=== PATIENT | male | born 1955 | race Caucasian/White ===

== ENCOUNTER 2022-06-13 00:02 | Inpatient (IN) | payer MEDICARE, OTHER ==
[~2022-06-13] VITALS: Ht 180.3 cm; Wt 88.0 kg
[2022-06-13] MEDS ORDERED: DULO60CA45 PO (00:21)
[2022-06-13] MEDS ORDERED: TRAZ-257 PO (00:21)
[2022-06-13] MEDS ORDERED: TAMS-3 PO (00:21)
[2022-06-13] MEDS ORDERED: BUPR100T6 PO (00:21)
[2022-06-13 02:58] LABS: HEMATOCRIT 42.9 % (36.7-47.1); MEAN CORPUSCULAR HEMOGLOBIN 29.2 uug (23.8-33.4); MEAN CORPUSCULAR VOLUME 87.6 fL (73.0-96.2); PLATELET COUNT (AUTO) 233 K/uL (152-348)
[2022-06-13 02:59] LABS: CARBON DIOXIDE 30 mmol/L (21-32); CHLORIDE 104 mmol/L (98-107); CREATININE 1.1 mg/dL (0.6-1.3); GLUCOSE 98 mg/dL (74-106); POTASSIUM 4.4 mmol/L (3.5-5.1); UREA NITROGEN, BLOOD 23 mg/dL (7-18)
[2022-06-13 03:04] LABS: ALANINE AMINOTRANSFERASE 31 U/L (16-63); ALKALINE PHOSPHATASE 82 U/L (50-136); ASPARTATE AMINOTRANSFERASE 10 U/L (15-37); BILIRUBIN,DIRECT 0.1 mg/dL (0.0-0.2); BILIRUBIN,TOTAL 0.4 mg/dL (0.2-1.0)
[2022-06-13 03:05] LABS: ACETAMINOPHEN < 2.0 ug/mL (10-30)
[2022-06-13 03:07] LABS: ETHANOL < 3 MG/DL (0-0)
[2022-06-13 03:09] LABS: *AMPHETAMINE, URINE NEGATIVE (NEGATIVE); *CANNABINOID, URINE NEGATIVE (NEGATIVE); *COCCAINE, URINE NEGATIVE (NEGATIVE); *OPIATE, URINE NEGATIVE (NEGATIVE); *PHENCYCLIDINE SCREEN,URINE NEGATIVE (NEGATIVE)
[2022-06-13 03:12] LABS: THYROID STIMULATING HORMONE 3.217 mIU/mL (0.358-3.740)
--- NOTE | 2022-06-13 04:17 | NUR ---
patient is a/ox4, NAD noted. Patient is able to walk to the restroom with steady gait
--- NOTE | 2022-06-13 04:42 | NUR ---
report given to Renetta HYATT
--- NOTE | 2022-06-13 06:24 | NUR ---
Pt. admitted to MHU room 139B , under care of Dr. Walton Belongs List completed
[2022-06-13] MEDS ORDERED: MAG HYDROX/AL HYDROX/SIMETH 30 ML LIQUID UDC PO PRN (06:30)
[2022-06-13] MEDS ORDERED: MAGNESIUM HYDROXIDE 30 ML LIQUID UDC PO PRN (06:30)
[2022-06-13] MEDS ORDERED: ACETAMINOPHEN 325 MG TABLET PO PRN (06:30)
[2022-06-13 06:54] VITALS: BP 139/74
--- NOTE | 2022-06-13 07:16 | NUR ---
GPS ADMISSION NOTE: Patient is a 66 year old male , brought to the hospital on a 5150 from [place], for DTS. Per hold, the patient verbalized wanting "to " because " I am in a lot of pain ". This patient has a history of prostate surgery and per the patient, this has caused him to be in pain in the testicular region. Upon face to face evaluation, the patient is alert and oriented x4, but anxious. This specifications writer was able to engage in a meaningful conversation with the patient who expressed a urgent need to get his medical problems addressed. Patient denied active SI but does feel his situation seems hopeless at times. The patient made a verbal contract for safety at that time with this specifications writer. The unit rules and plan of care were discussed. A patients Rights Handbook and the Advisement were provided. VS are stable . Safety Stratiges in place. Monitoring patients depression and pain at this time.
[2022-06-13 07:30] VITALS: BP 108/70
[2022-06-13] MEDS: TAMSULOSIN HCL 0.4 MG CAP.SR.24H PO SCH ×2 (09:45→21:00)
--- NOTE | 2022-06-13 10:36 | NUR ---
GPS: OFFERED FLOMAX TO PT BUT REFUSED, HE STATED "IT DOESN'T WORK WELL WITH ME AND IT GIVES ME AN ACCIDENT". EXPLAINED THE RISK AND BENEFITS BUT STILL REFUSED. WILL NOTIFY MD FOR ANY SUBSTITUTE MED.
[2022-06-13] MEDS: FLUOXETINE HCL 20 MG CAPSULE PO SCH (13:30)
--- NOTE | 2022-06-13 14:03 | NUR ---
Patient is cooperative, calm, appropriate, quiet. Patient denies SI. Pt. states "I said that I wanted because I was having a lot of pain". Self care. Pt. is encourage to vent feelings and emotions. Fall and safety precautions implemented.
[2022-06-13 16:00] VITALS: BP 111/73
--- NOTE | 2022-06-13 16:13 | NUR ---
MAURILIO Initial Discharge Note: Patient currently resides alone in his house located at [address] [place] [address] ([phone]). Patient states that he will discharge home. MAURILIO will contact the patient's daughter, Candice ([phone]). MAURILIO will continue to work with patient, family, and MD to ensure a safe and proper discharge plan.
--- NOTE | 2022-06-13 16:21 | NUR ---
Firearms Report: Casino Manager completed and submitted a DOJ firearms report for 5150 danger to self certifications. A copy of report has been placed in patient chart.
[2022-06-13] MEDS: ATORVASTATIN 20 MG TABLET PO SCH (20:14)
[2022-06-13] MEDS: MELATONIN 3 MG TABLET PO SCH (20:14)
[2022-06-13 20:26] VITALS: BP 119/78
--- NOTE | 2022-06-13 20:45 | NUR ---
RECEIVED PATIENT IN HIS ROOM SITTING IN HIS BED. HE IS NOTED A/O X 4 ABLE TO VERBALIZED FEELINGS. HE APPEARS DEPRESSED HE IS WITHDRAWN BUT HE DENIED SI/HI//AH HE IS ABLE TO VERBALLY CFS. HE STATED, "I AM HERE BECAUSE I TOLD THE NURSE FORM THE OTHER HOSPITAL THAT I WANTED TO ". "I DON'T WANT TO . I JUST SAID THAT BECAUSE I AM HAVING SOME PROBLEMS WITH MY URINE AND MY PROSTATE". PATIENT IS COMPLIANT WITH HIS MEDICATION REGIMENT. HE IS NOTED GOAL ORIENTED. HE IS REASSURED FOR HIS SAFETY. SAFETY AND FALL PRECAUTIONS ARE IN PLACE. HE WAS GIVEN PO FLUIDS AND SNACKS. WILL CONTINUE TO MONITOR.
[2022-06-14] MEDS: TEMAZEPAM 7.5 MG CAPSULE PO PRN ×2 (00:06→22:40)
[2022-06-14 07:30] VITALS: BP 117/75
[2022-06-14] MEDS: TAMSULOSIN HCL 0.4 MG CAP.SR.24H PO SCH (09:28)
[2022-06-14] MEDS: LORAZEPAM 0.5 MG TABLET PO PRN ×2 (09:34→14:13)
[2022-06-14] MEDS: FLUOXETINE HCL 20 MG CAPSULE PO SCH (12:50)
--- NOTE | 2022-06-14 14:30 | NUR ---
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 Complained of scrotal discomfort, from his previous TURP. medicated with tylenol 650 mg po, verbalized, adequate relief.
[2022-06-14 16:00] VITALS: BP 97/60
[2022-06-14 19:46] VITALS: BP 115/72
--- NOTE | 2022-06-14 20:30 | NUR ---
RECEIVED PATIENT IN THE DAYROOM. HE IS NOTED A/O X 4. HE IS CALM AND PLEASANT UPON APPROACHED/ HE IS ABLE TO VERBALIZED HIS FEELING. PATIENT DENIED SI AND HE IS ABLE TO VERBALLY CFS. HE STATED, "I DON'T WANT TO AND DON'T WANT TO HARM MYSELF I AM JUST TIRED OF HAVING PAIN. I HAVE AN APPOINTMENT WITH MY DOCTOR ON SATURDAY VIA PHONE CALL TO DISCUSS MY OPTIONS". PT IS GOAL ORIENTED, HE IS REASSURED FOR HIS SAFETY. SAFETY AND FALL PRECAUTIONS ARE IN PLACE. HIS V/S ARE STABLE. HE WAS GIVEN PO FLUIDS AND SNACKS. WILL CONTINUE TO MONITOR,
[2022-06-14] MEDS: MELATONIN 3 MG TABLET PO SCH (20:31)
[2022-06-14] MEDS: ATORVASTATIN 20 MG TABLET PO SCH (20:32)
[2022-06-15] MEDS: LORAZEPAM 0.5 MG TABLET PO PRN ×2 (04:06→09:01)
--- NOTE | 2022-06-15 06:58 | NUR ---
patient slept for approx 4 hrs through the night. he was given Temazepam 7.5mg PO PRN for insomnia. will continue to monitor.
[2022-06-15 07:30] VITALS: BP 114/71
--- NOTE | 2022-06-15 10:00 | NUR ---
GPS;Patient had 5250 probable cause hearing today and it was upheld for danger to self.
--- NOTE | 2022-06-15 11:44 | NUR ---
CLINICAL SW NOTE: MAURILIO contacted pt's urologist's, Dr. Lang's office, and spoke with Angela ([phone]). MAURILIO informed Angela to contact the [facility] nursing station ([phone]) for pt's phone appointment today at 4:20PM. Angela confirmed she notified the office to contact the nursing station instead of the pt's phone. Pt is aware and agreeable. OPERATIONS FORESTER, Miky made aware. MAURILIO informed nursing station, Mitzy.
[2022-06-15] MEDS: FLUOXETINE HCL 20 MG CAPSULE PO SCH (12:10)
[2022-06-15] MEDS: TAMSULOSIN HCL 0.4 MG CAP.SR.24H PO SCH (12:11)
[2022-06-15] MEDS ORDERED: FLUOXETINE HCL 20 MG CAPSULE PO ONE (13:15)
[2022-06-15] MEDS: busPIRone 5 MG TABLET PO SCH ×2 (13:16→16:43)
[2022-06-15 15:10] VITALS: BP 104/69
--- NOTE | 2022-06-15 17:05 | NUR ---
Gps/Earth Moving Machine Operator- No calls received from patient's Urologist , waiting from their office (appointment was made for 1620 this pm.) Current medication list printed in preparation to the appointment, but no calls noted. Patient was informed.
[2022-06-15] MEDS: IBUPROFEN 600 MG TABLET PO PRN (17:29)
[2022-06-15] MEDS: TRAZODONE 100 MG TABLET PO SCH (20:24)
[2022-06-15] MEDS: ATORVASTATIN 20 MG TABLET PO SCH (20:24)
[2022-06-15] MEDS ORDERED: TAMSULOSIN HCL 0.4 MG CAP.SR.24H PO SCH (21:00)
[2022-06-15 22:02] VITALS: BP 114/65
[2022-06-15] MEDS: TEMAZEPAM 7.5 MG CAPSULE PO PRN (22:03)
[2022-06-16 07:31] VITALS: BP 113/70
[2022-06-16] MEDS: busPIRone 5 MG TABLET PO SCH ×3 (08:54→16:09)
[2022-06-16] MEDS: TAMSULOSIN HCL 0.4 MG CAP.SR.24H PO SCH (08:54)
[2022-06-16] MEDS: FLUOXETINE HCL 20 MG CAPSULE PO SCH (12:03)
[2022-06-16 16:21] VITALS: BP 106/67
[2022-06-16 20:09] VITALS: BP 104/67
[2022-06-16] MEDS: TRAZODONE 100 MG TABLET PO SCH (20:09)
[2022-06-16] MEDS: ATORVASTATIN 20 MG TABLET PO SCH (20:09)
[2022-06-16] MEDS: LORAZEPAM 0.5 MG TABLET PO PRN (20:09)
[2022-06-16] MEDS: TEMAZEPAM 15 MG CAPSULE PO PRN (22:07)
--- NOTE | 2022-06-17 01:47 | NUR ---
Received patient at the start of the shift, pacing in the hallway. Anxious, but adamantly denied any SI. The patient is depressed however, and ruminates on his medical problems. Also he verbalizes multiple complaints ,is needy and is difficult to appease despite best efforts on behalf of this typewriter assembly and parts inspector. The patient requested medication for anxiety and was given a sleeping pill per request because " that Trazodone doesn't do anything at all ." Safety Stratiges are in place. This typewriter assembly and parts inspector offered the patient a urinal d/t him getting up frequently to void but the patient declined. Continuing to monitor for SI , depression and pain. The patient does not engage in meaningful conversation , and has poor insight.
[2022-06-17 07:52] VITALS: BP 110/71
[2022-06-17] MEDS: TAMSULOSIN HCL 0.4 MG CAP.SR.24H PO SCH (08:38)
[2022-06-17] MEDS: busPIRone 5 MG TABLET PO SCH ×3 (08:38→16:33)
[2022-06-17] MEDS: LORAZEPAM 0.5 MG TABLET PO PRN (12:12)
[2022-06-17] MEDS: FLUOXETINE HCL 20 MG CAPSULE PO SCH (12:12)
[2022-06-17 17:44] VITALS: BP 94/52
[2022-06-17] MEDS: IBUPROFEN 600 MG TABLET PO PRN (17:50)
--- NOTE | 2022-06-17 20:05 | NUR ---
RECEIVED PATIENT IN THE DAY ROOM. HE IS NOTED A/O X 3 ABLE TO VERBALIZED HIS FEELING. HE IS CALM AND PLEASANT UPON APPROACHED. HE DENIED SI/HI/VH/AH. HE IS ABLE TO VERBALLY CFS. HE STATED, "I DON'T WANT TO OR HARM MYSELF, I WANT TO GET BETTER, I DON'T WANT TO BE IN PAIN. I WANT TO SEE MY DOCTOR AND START MY TREATMENT. I WAS SUPPOSED TO SEE HIM ON SATURDAY BUT HE DIDN'T CALL". PATIENT IS NOTED GOAL ORIENTED. HE IS REASSURED FOR HIS SAFETY. SAFETY AND FALL PRECAUTIONS ARE IN PLACE, WILL CONTINUE TO MONITOR.
[2022-06-17 20:19] VITALS: BP 105/69
[2022-06-17] MEDS: TRAZODONE 100 MG TABLET PO SCH (20:53)
[2022-06-17] MEDS: ATORVASTATIN 20 MG TABLET PO SCH (20:53)
[2022-06-17] MEDS: TEMAZEPAM 15 MG CAPSULE PO PRN (21:52)
[2022-06-18 07:30] VITALS: BP 118/73
[2022-06-18] MEDS: TAMSULOSIN HCL 0.4 MG CAP.SR.24H PO SCH (08:24)
[2022-06-18] MEDS: busPIRone 5 MG TABLET PO SCH ×3 (08:24→16:24)
[2022-06-18] MEDS: LORAZEPAM 0.5 MG TABLET PO PRN ×2 (09:57→20:59)
[2022-06-18] MEDS: FLUOXETINE HCL 20 MG CAPSULE PO SCH (12:28)
--- NOTE | 2022-06-18 14:11 | NUR ---
Received patient continued medications compliance noted. making his needs known, attends and participate in his group tx. Able to verbalized feelings, feels hopeless and helpless but denies any suicidal ideation .c/o anxiety at time Ativan 1 mg po given as ordered.
[2022-06-18 15:05] VITALS: BP 105/62
[2022-06-18] MEDS: TRAZODONE 100 MG TABLET PO SCH (20:30)
[2022-06-18] MEDS: ATORVASTATIN 20 MG TABLET PO SCH (20:30)
--- NOTE | 2022-06-19 04:36 | NUR ---
GPS NOTES: Patient continues to be med compliant, A&0x3, able to make needs known. He is requesting for Restoril but informed patient that it was d/c and can talk to the in the Am to continue the order. He slept most of the shift, no issue noted. Frequent monitoring observed.
[2022-06-19 07:30] VITALS: BP 112/72
[2022-06-19] MEDS: TAMSULOSIN HCL 0.4 MG CAP.SR.24H PO SCH (08:39)
[2022-06-19] MEDS: busPIRone 5 MG TABLET PO SCH ×3 (08:39→16:49)
[2022-06-19] MEDS: FLUOXETINE HCL 20 MG CAPSULE PO SCH (12:35)
--- NOTE | 2022-06-19 15:09 | NUR ---
Patient is cooperative with care and compliant with medications, calm, sociable, pleasant. Pt. is A/O X 3 -4 to person, place, environment. Self care. Patient is encourage to verbalize concerns. Fall and safe precautions implemented.
[2022-06-19 15:30] VITALS: BP 103/47
[2022-06-19 19:53] VITALS: BP 106/77
[2022-06-19] MEDS: ATORVASTATIN 20 MG TABLET PO SCH (20:49)
[2022-06-19] MEDS: TRAZODONE 50 MG TABLET PO SCH (20:50)
[2022-06-20 07:30] VITALS: BP 116/75
[2022-06-20] MEDS: TAMSULOSIN HCL 0.4 MG CAP.SR.24H PO SCH (08:40)
[2022-06-20] MEDS: busPIRone 5 MG TABLET PO SCH ×3 (08:40→16:48)
--- NOTE | 2022-06-20 11:58 | NUR ---
Social Work Coordination of Care: Conveyor Belt Repairer faxed patient's referral packet including: History and Physical, Consultation, Progress Notes, Medication List and Labs to the following facilities for review and possible assisted placement: [facility] located at [address] [place] [address] ([phone]). MAURILIO spoke with admissions equity traderElena.
[2022-06-20] MEDS: FLUOXETINE HCL 20 MG CAPSULE PO SCH (13:29)
--- NOTE | 2022-06-20 13:59 | NUR ---
MAURILIO Family Contact: MAURILIO contacted pt's sister, Candice ([phone]) and discussed pt's discharge for this Saturday. Candice confirmed that she will not be able to provide transportation or care due to her work and children. Candice stated that the pt does not have an available family member at this time to help with continuation of care or transportation. Candice agreed to the psychiatrist's recommendation prior to discharge for the discharge plan. MAURILIO stated she will confirm the discharge plan once available.
--- NOTE | 2022-06-20 14:35 | NUR ---
SW Discharge Update: Elena from [facility] located at [address] [place] [id number] ([phone]) confirmed pt's acceptance to their facility upon discharge.
--- NOTE | 2022-06-20 14:59 | NUR ---
Patient is sociable, pleasant, calm, cooperative, appropriate, compliant with medications. Self care. Pt. is encourage to vent feelings and emotions. Fall and safety precautions implemented.
[2022-06-20 16:00] VITALS: BP 107/63
[2022-06-20 20:00] VITALS: BP 110/62
[2022-06-20] MEDS: TRAZODONE 50 MG TABLET PO SCH (20:39)
[2022-06-20] MEDS: ATORVASTATIN 20 MG TABLET PO SCH (20:39)
[2022-06-21 07:30] VITALS: BP 115/74
[2022-06-21] MEDS: busPIRone 5 MG TABLET PO SCH ×3 (08:32→17:30)
[2022-06-21] MEDS: TAMSULOSIN HCL 0.4 MG CAP.SR.24H PO SCH (08:32)
[2022-06-21] MEDS: FLUOXETINE HCL 20 MG CAPSULE PO SCH (12:47)
[2022-06-21 15:52] VITALS: BP 97/63
--- NOTE | 2022-06-21 16:24 | NUR ---
MAURILIO Family Contact: SW contacted pt's daughter, Candice ([phone]) and discussed pt's discharge plan. Candice is aware and agreeable with pt's discharge plan to [facility] on 06/22/22.
--- NOTE | 2022-06-21 16:51 | NUR ---
Patient is cooperative with nursing care and compliant with medications, calm, sociable, pleasant. A/O X 3 to person, place. Self care. Pt. is encourage to verbalize concerns. Fall and safety precautions implemented.
[2022-06-21 20:06] VITALS: BP 108/66
[2022-06-21] MEDS: ATORVASTATIN 20 MG TABLET PO SCH (20:51)
[2022-06-21] MEDS: TRAZODONE 50 MG TABLET PO SCH (20:51)
--- NOTE | 2022-06-21 21:00 | NUR ---
GPS: Received patient sitting in day room watching tv. pleasant upon approach. denied SI @ this time. no agitation noted at this time. Continuing to monitor for SI , depression and pain. The patient does not engage in meaningful conversation , and has poor insight. continue plan of care.
--- NOTE | 2022-06-22 06:13 | NUR ---
GPS: Remain calm and cooperative.compliant with medications, Self care. Patient is encourage to verbalize concerns. Fall and safe precautions implemented. slept 6.30 hrs through the night.
[2022-06-22 07:30] VITALS: BP 109/72
[2022-06-22] MEDS: TAMSULOSIN HCL 0.4 MG CAP.SR.24H PO SCH (08:32)
[2022-06-22] MEDS: busPIRone 5 MG TABLET PO SCH (08:32)
[2022-06-22] MEDS: IBUPROFEN 600 MG TABLET PO PRN (08:32)
--- NOTE | 2022-06-22 09:00 | NUR ---
SW Discharge Note: José Miguel Ahuja (Dr. Walton) Pt will be discharged to [facility] located at [address] [place] [phone] ([phone]) via Ambulance transportation at 11AM. SW spoke with admin coordinator, Elena at the facility who states they are ready to accept the patient today. Pt is aware and agreeable with discharge plan. This SW spoke with pts daughter, Candice ([phone]) who is aware and agreeable with the discharge plan. Pt is alert and oriented x4, is unable to plan for self-care at this time. However, pt is willing to accept care at SNF. Pt denies any suicidal or homicidal ideation. Pt will follow-up at the facility with Psychiatrist, Dr. Walton ([phone]) and Healthcare Market Consultant, Dr. Ruth. Pt presents with calm mood and congruent affect. PHARMACY: [facility] ([phone]) [address] [facility] [address]. *NURSE DO RAPID COVID TEST ON 06/21/22 *NURSE [facility] AT 11AM
--- NOTE | 2022-06-22 11:07 | NUR ---
Discharged patient to [facility] via ambulance at 11 am, patient in stable condition ,vital sign stable. compliant with all po medication .report given to Mike HYATT .all personal belonging returned to patient.
== END 2022-06-22 11:16 | DRG 885 ==
LOC: ER 00:13 → GPS 06:14
PROVIDERS: ADMIT Psychiatry & Neurology Psychosomatic Medicine; ATTEND Nurse Practitioner Family
DX: F33.2 Major depressive disorder, recurrent severe without psychotic features (principal); R45.851 Suicidal ideations; N40.1 Benign prostatic hyperplasia with lower urinary tract symptoms; R33.8 Other retention of urine; R39.15 Urgency of urination; E78.5 Hyperlipidemia, unspecified; F29 Unspecified psychosis not due to a substance or known physiological condition; G40.909 Epilepsy, unspecified, not intractable, without status epilepticus; Z86.16 Personal history of COVID-19; Z90.79 Acquired absence of other genital organ(s); Z88.0 Allergy status to penicillin; F41.9 Anxiety disorder, unspecified; F41.1 Generalized anxiety disorder; Z73.6 Limitation of activities due to disability; Z91.51 Personal history of suicidal behavior; Z20.822 Contact with and (suspected) exposure to COVID-19; F41.0 Panic disorder [episodic paroxysmal anxiety]
CPT/HCPCS: 36415; 84443; 85025; A4663; G0480